=== PATIENT | male | born 1985 | race Caucasian/White ===

== ENCOUNTER 2022-11-18 22:09 | Emergency (ER) | payer OTHER ==
[~2022-11-18] VITALS: Ht 175.3 cm; Wt 82.6 kg
[2022-11-18 22:11] VITALS: BP 110/71
--- NOTE | 2022-11-18 22:14 | NUR ---
Leslee mcmullen in [facility] - 11/18/22 at 2216 by [facility] PT OFFLOADED TO [facility]
[2022-11-18 22:19] VITALS: BP 110/77
--- NOTE | 2022-11-18 22:21 | NUR ---
PT OFFLOADED TO [facility]KR[facility]
--- NOTE | 2022-11-19 02:00 | NUR ---
37YR OLD MALE BIB EMS C/O BHAVANA FOOT PAIN. BHAVANA FEET RED WITH SMALL BLISTERS ABRASIONS AND CRACKED HEELS. PAIN IS CHRONIC PT IS HOMELESS AND STATES HE WALKS ALL DAY. PT HAD INITIALLY STATED ABD PAIN TO EMS. DENIES ABD PAIN CURRENTLY. DENIES SOB OR CP. PT IS A&OX4. PAIN LEVEL 810 . PT IS A POOR HISTORIAN. NKDA UNKNOWN
[2022-11-19] MEDS ORDERED: ACETAMINOPHEN EXTRA STRENGTH 500 MG TAB ONE (04:13)
--- NOTE | 2022-11-19 04:15 | NUR ---
Patient discharged with v/s stable. Written and verbal after care instructions given and explained. Patient verbalized understanding. Ambulatory with steady gait. All questions addressed prior to discharge. Advised to follow up with PMD.
[2022-11-19] MEDS ORDERED: ACETAMINOPHEN EXTRA STRENGTH 500 MG TAB PO ONE (04:35)
== END 2022-11-19 04:15 | disposition home or self-care (01) ==
LOC: MED 22:09
DX: R10.9 Unspecified abdominal pain (principal)
CPT/HCPCS: 99283

== ENCOUNTER 2022-12-24 00:09 | Emergency (ER) | payer OTHER ==
[~2022-12-24] VITALS: Ht 175.3 cm; Wt 71.7 kg
[2022-12-24 00:30] VITALS: BP 138/90
--- NOTE | 2022-12-24 00:33 | NUR ---
TO LOBBY A/W BED AMBULATORY
--- NOTE | 2022-12-24 05:04 | NUR ---
PT CALLED IN LOBBY AND OUTSIDE x3 WITH NO ANSWER. PT LWBS
== END 2022-12-24 05:04 | disposition left against medical advice (07) ==
LOC: MED 00:09
DX: R10.9 Unspecified abdominal pain (principal); Z53.21 Procedure and treatment not carried out due to patient leaving prior to being seen by health care provider
CPT/HCPCS: 99281

== ENCOUNTER 2023-10-07 22:26 | Emergency (ER) | payer OTHER ==
[~2023-10-07] VITALS: Ht 172.7 cm; Wt 71.7 kg
[2023-10-07 23:10] VITALS: BP 120/82; PULSE 91; RESP 16; TEMP 97.7; O2SAT 99
[2023-10-08] MEDS: ACETAMINOPHEN 325 MG TAB PO ONE (05:36)
[2023-10-08] MEDS: ONDANSETRON 4 MG ODT PO ONE (05:37)
== END 2023-10-08 05:36 | disposition home or self-care (01) ==
LOC: MED 22:26
DX: R51.9 Headache, unspecified (principal); T73.0XXA Starvation, initial encounter; Z79.899 Other long term (current) drug therapy; X58.XXXA Exposure to other specified factors, initial encounter
CPT/HCPCS: 99283; Q0162

== ENCOUNTER 2023-10-17 16:54 | Emergency (ER) | payer OTHER ==
[~2023-10-17] VITALS: Ht 180.3 cm; Wt 71.7 kg
[2023-10-17 17:17] VITALS: BP 155/92; PULSE 92; RESP 18; TEMP 98.8; O2SAT 97
== END 2023-10-17 17:36 | disposition home or self-care (01) ==
LOC: MED 16:54
DX: R10.84 Generalized abdominal pain (principal); R11.2 Nausea with vomiting, unspecified; R19.7 Diarrhea, unspecified; R50.9 Fever, unspecified
CPT/HCPCS: 99281